=== PATIENT | female | born 1965 | race Caucasian/White ===

== ENCOUNTER 2022-01-10 13:01 | Outpatient (CLI) | payer OTHER, SELFPAY ==
[2022-01-10 21:58] LABS: Chloride* 105 mmol/L (96-114); Potassium* 4.3 mmol/L (3.6-5.1); Sodium* 141 mmol/L (135-149)
[2022-01-10 22:01] LABS: Blood Urea Nitrogen* 11 mg/dL (7-30); Calcium* 9.6 mg/dL (8.4-10.6); Carbon Dioxide* 27 mmol/L (20-32); Cholesterol* 182 mg/dL (90-199); Creatinine* 0.7 mg/dL (0.5-1.5); Estimated Glomerular Filt Rate 101 ml/min; Glucose* 90 mg/dL (60-115); Triglycerides* 254 mg/dL (40-149)
[2022-01-10 22:02] LABS: HDL Cholesterol* 53 mg/dL (>=50); LDL Cholesterol Calculated 78 mg/dL (<100)
[2022-01-10 22:26] LABS: TSH With Reflex to FT4* 0.154 uIU/mL (0.270-4.200)
== END 2022-01-10 13:02 | disposition home or self-care (01) ==
PROVIDERS: PCP Emergency Medicine; Visit Provider Emergency Medicine
DX: Z01.818 Encounter for other preprocedural examination (principal); E78.5 Hyperlipidemia, unspecified; E03.9 Hypothyroidism, unspecified
CPT/HCPCS: 80048; 80061; 84439; 84443

== ENCOUNTER 2022-04-24 10:58 | Outpatient (CLI) | payer OTHER, SELFPAY | END 2022-04-24 10:59 | disposition home or self-care (01) | PROVIDERS: PCP Emergency Medicine; Visit Provider Emergency Medicine | DX: E03.9 Hypothyroidism, unspecified (principal) | CPT/HCPCS: 84443 ==

== ENCOUNTER 2022-05-09 08:00 | Outpatient (RCR) | payer OTHER, SELFPAY | END 2022-10-10 23:59 | disposition home or self-care (01) | PROVIDERS: PCP Emergency Medicine; Visit Provider Physician Assistant | DX: Z96.659 Presence of unspecified artificial knee joint (principal); Z51.89 Encounter for other specified aftercare | CPT/HCPCS: 97110; 97112; 97116; 97140; 97162 ==

== ENCOUNTER 2023-04-03 13:40 | Outpatient (CLI) | payer OTHER, SELFPAY | END 2023-04-03 13:41 | disposition home or self-care (01) | LOC: NFLDREF 04-04 06:12 | PROVIDERS: PCP Emergency Medicine; Referring Provider Emergency Medicine; Visit Provider Emergency Medicine | DX: Z00.00 Encounter for general adult medical examination without abnormal findings (principal); E78.5 Hyperlipidemia, unspecified; E78.1 Pure hyperglyceridemia; E03.9 Hypothyroidism, unspecified; Z13.1 Encounter for screening for diabetes mellitus | CPT/HCPCS: 80053; 84443 ==